=== PATIENT | female | born 1970 | race Caucasian/White ===

== ENCOUNTER 2019-07-28 11:49 | Day surgery (SDC) | payer OTHER ==
--- NOTE | 2019-07-25 13:12 | HP ---
AMENDED REPORT NOW INCLUDES DESIGNATED COSIGNER PREOPERATIVE HISTORY AND PHYSICAL: DATE OF ADMISSION/SURGERY: 07/28/19 DATE OF OFFICE VISIT: 07/22/19 ATTENDING SURGEON: Dr. Bj Dumont.* (DICTATED BY RAYNE TEIXEIRA) PROCEDURE: Right shoulder arthroscopic decompression, arthroscopic debridement , arthroscopic excision of distal clavicle, possible Regeneten patch. CHIEF COMPLAINT: Right shoulder pain. HISTORY OF PRESENT ILLNESS: Naty is a 48-year-old female who presents to the clinic for right shoulder pain due to AC joint arthritis, a partial thickness tear of the supraspinatus tendon. She has failed conservative measures, therefore, agreed to undergo a right shoulder arthroscopic decompression, arthroscopic debridement, arthroscopic excision of the distal clavicle and possible Regeneten patch with Dr. Dumont on 07/28/19. PAST MEDICAL HISTORY: Inflammatory polyarthropathy, GERD, hypertension. PAST SURGICAL HISTORY: Left total hip replacement, left hip debridement, left humerus, appendectomy. The patient denies prior complications with anesthesia. MEDICATIONS: 1. Ranitidine 150 mg 1 cap twice a day. 2. Methotrexate 2.5 mg 1 cap once weekly. 3. Folic acid 1 mg 1 a day. 4. Gabapentin 300 mg 1 twice a day. 5. Metoprolol 50 mg 1 twice a day. 6. Nucynta ER 250 mg 1 tab twice a day. 7. Nucynta 50 mg 1 tab twice a day as needed for breakthrough pain. 8. Norethindrone acetate 5 mg 1 daily. 9. Estradiol 1 mg 1 every day. 10. Lisinopril 10 mg 1 every day. 11. Fluoxetine 40 mg 1 tab every day. ALLERGIES: buprenorphine and DICLOFENAC. FAMILY HISTORY: Positive for coronary artery disease. Denies family history of DVT or PE. SOCIAL HISTORY: She is not a smoker. She denies alcohol consumption. She is right hand dominant. REVIEW OF SYSTEMS: A 14-point review of systems was reviewed with the patient. Positive for current complaint, otherwise negative. Denies fever, chills, chest pain, shortness of breath, history of bleeding disorder, history of DVT or PE. PHYSICAL EXAMINATION GENERAL: A 48-year-old well-developed, well-nourished female, in no acute distress. Alert and oriented x3. Appropriate mood and affect. Good balance and coordination of the upper extremities. VITAL SIGNS: Height 64, weight 189. Pulse 74, blood pressure 136/74, respiratory rate 16, temperature 97.1, BMI 32.4. HEENT: Normocephalic, atraumatic. PERRL. Throat clear. NECK: Supple. PULMONARY: Lungs are clear to auscultation bilaterally. No wheezing, rhonchi, or rales. CARDIAC: Regular rate and rhythm. S1, S2. No murmurs, gallops, or rubs. No edema. ABDOMEN: Positive bowel sounds. Soft, nontender. NEURO: Alert and oriented x3. Cranial nerves grossly intact. MUSCULOSKELETAL: Right upper extremity: Skin is intact. No warmth or erythema. Tenderness of the AC joint and subacromial space. Forward flexion 160 , abduction 160. External rotation 60, internal rotation to the thoracolumbar spine. Positive impingement, Speed, Lai, Neer, and Kent. +4/5 strength to rotator cuff testing with pain positive. +2 radial pulse. Sensation intact to light touch distally. STUDIES: MRI revealed partial thickness tear of the supraspinatus and AC joint arthritis plus fluid in the bicipital groove. IMPRESSION: Right shoulder partial thickness rotator cuff tear and acromioclavicular joint arthritis. PLAN: The patient is scheduled to undergo a right shoulder arthroscopic decompression, arthroscopic debridement, arthroscopic excision of distal clavicle with Regeneten patch with Dr. Dumont on 07/28/19. She will follow up in 10 to 14 days postop for followup and suture removal. We touched base with her provider in the pain clinic, who recommended oxycodone 5 mg, MDD of 6 in addition to her chronic pain medications for postop pain management. RAYNE TEIXEIRA [id number]/[facility] #: [id number] REYNOLD
[~2019-07-28 11:49] MED LIST: Buffered Lidocaine 1% SYRIN* 1 ML/SYRINGE INTRADERM ONE; Bupivacaine 0.25% SDV* 30 ML ONE; DiMENhydriNATE IV* 50 MG/ML VIAL IV PUSH PRN; Famotidine IV* 10 MG/ML 2 ML (20 mg) IV ONE; HYDROmorphone INJ1* 1 MG/ML SYRINGE IV PRN; Lactated Ringers 1000 ML Bag* 1,000 ML IV SCH; Naloxone* 0.4 MG/ML 1 ML VIAL IV PRN; Ondansetron TAB* 4 MG PO ONE; PROCHLORPERAZINE INJ 5 MG/ML 2 ML VIAL IV PRN; fentaNYL* 50 MCG/ML 2 ML VIAL (100 MCG VIAL) IV PRN; oxyCODONE TAB* 5 MG TAB PO PRN
[2019-07-28] MEDS ORDERED: ceFAZolin 2 GM in NS PREMIX(*) 2 GM/100 ML BAG IVPB ONE (12:24)
[2019-07-28] MEDS ORDERED: Famotidine IV* 10 MG/ML 2 ML (20 mg) ONE (12:48)
[2019-07-28] MEDS ORDERED: Ondansetron ODT TAB* 4 MG ONE (12:48)
[2019-07-28] MEDS ORDERED: Ropivacaine 0.2% * 2 MG/ML VIAL ONE (14:40)
[2019-07-28] MEDS ORDERED: KETAMINE HCL* 50 MG/ML 10 ML VIAL ONE (14:47)
[2019-07-28] MEDS ORDERED: fentaNYL* 50 MCG/ML 2 ML VIAL (100 MCG VIAL) ONE ×2 (14:47→16:31)
[2019-07-28] MEDS ORDERED: Midazolam* 1 MG/ML 5 ML VIAL (5 MG) ONE (14:48)
[2019-07-28] MEDS ORDERED: Lidocaine 1% w EPI 1:200,000* SDV 30 ML VIAL ONE (15:31)
[2019-07-28] MEDS ORDERED: Lidocaine 2% PF * 5 ML VIAL ONE (16:18)
[2019-07-28] MEDS ORDERED: Propofol* 10 MG/ML 20 ML BTL ONE (16:18)
[2019-07-28] MEDS ORDERED: Dexamethasone IV* 4 MG/ML 1 ML (4 MG) ONE (16:18)
[2019-07-28] MEDS ORDERED: Ketorolac INJ* 30 MG/ML 1 ML VIAL ONE (16:18)
[2019-07-28] MEDS ORDERED: oxyCODONE ORAL.SOLN* 5 MG/5 ML UDC ONE (17:30)
[2019-07-28 18:34] VITALS: BP 135/78
--- NOTE | 2019-07-29 01:33 | OP ---
DATE OF OPERATION: 07/28/19 LOCATED WITHIN [facility] DATE OF : 72 SURGEON: Bj Dumont MD ANIMAL HUSBANDRY MANAGER: RAYNE Burt. An family assistant was needed for the entirety of the case to help with positioning, retraction, and utilized throughout all portion of the case. ANESTHESIOLOGIST: Dr. Rousseau. ANESTHESIA: General with interscalene block. PRE-OP DIAGNOSIS: Right shoulder acromioclavicular joint arthritis with partial tear of the rotator cuff. POST-OP DIAGNOSES: Partial tear of the rotator cuff and acromioclavicular joint arthritis and impingement, intact superior labrum. OPERATIVE PROCEDURE: Right shoulder arthroscopy with: 1. Extensive glenohumeral debridement. 2. Subacromial decompression with acromioplasty. 3. Distal clavicle incision. 4. Rotator cuff repair using Regeneten. INDICATIONS: Naty Wong is a 48-year-old female with persistent shoulder pain refractory to conservative management. She has had several injections. She had AC joint arthritis with possible SLAP tear. She also has a potential history of MS. She has persistent pain and incomplete relief of symptoms. She has also chronic pain. The imaging demonstrated a partial-thickness tear of the supraspinatus and some AC joint arthritis. She did have arthrogram, so it was not sure if her biceps was involved and her symptoms were equivocal. After extensive discussion of risks and benefits, surgery versus nonoperative treatment, she has elected to proceed with surgical treatment. The risks and benefits were discussed at length included, but not limited to, bleeding; infection; damage to nerves, vessels, surrounding structures; wound nonhealing; persistent pain; need for further surgery; scarring; stiffness; incomplete relief of symptoms; risk of anesthesia. COMPLICATIONS: None. IMPLANTS USED: Regeneten patch, size medium. DESCRIPTION OF PROCEDURE: The patient was greeted in the preoperative area by the attending surgeon. Correct extremity was marked and consent was confirmed. The patient underwent interscalene nerve block by anesthesiologist after which she was brought back to the operating suite, placed in supine position on the operating table, and underwent general anesthesia with endotracheal intubation after which she was placed in the left lateral decubitus position with an axillary roll and all bony prominences were padded. She was secured with pegboard. The right arm was draped unsterile with 10 pounds of traction. The right shoulder was prepped in usual sterile fashion beginning with chlorhexidine soap, scrub, alcohol wipe, and a final prep with ChloraPrep. After appropriate surgical pause indicating side, site, procedure, and administration of antibiotics, a standard postero-lateral portal was made sharply with 11-blade. Scope was introduced into the joint and the joint was examined. There was synovitis that was present. There was unstable fraying of the anterior, posterior labrum. The superior labrum actually looked intact, there appeared to be a normal variant. The inferior recess was intact. There was small area of chondrosis on the glenoid, which was debrided back using the shaver. The subscap was intact. The undersurface of the supraspinatus had some mild fraying. The biceps had minimal erythema and the biceps was taken through range of motion after the anterior portal was made. The shaver was used to debride back the anterior and posterior labrum. Decision was made to leave the biceps alone. Attention was then directed to the subacromial space. The scope was positioned in the subacromial space. The lateral portal was made in an outside-in fashion. The shaver was used to debride back the abundant thick bursal tissue that was present. The undersurface of the acromion was skeletonized using electrocautery device. A 4.0 oval bur was then used to do acromioplasty. Her bone quality was quite poor. Attention was then directed to the AC joint which had obvious stenosis. The bur was brought into through the anterior portal and the distal 8 mm was removed using the bur under arthroscopic visualization with care to prevent any damage to the CC ligament. Final images were obtained. Attention was directed to the rotator cuff. The cuff was probed after an extensive bursectomy was done. There was some mild partial tearing. Decision was made to treat this. She did have clinical symptoms for so long. After the size medium patch was then opened and brought to the field through separate stab incision, the cannula was placed and the Regeneten patch was secured medially with tendon phillip, then laterally with bone phillip. The greater tuberosity appeared to have good quality of bone. The patch was well secured. The wounds were then copiously irrigated with sterile saline. Final images were obtained. Portals were closed with 3-0 nylon in interrupted fashion. Sterile dressings were applied. Cryo/Cuff and a regular sling. She was awoken from anesthesia and transferred to the PACU in stable condition. POSTOPERATIVE PLAN: She will be nonweightbearing. She will wean out of sling in 2 days. She will be discharged on pain medications. DVT prophylaxis was considered, but deferred due to no previous personal or family history. I will see the patient back in 10 to 14 days. [id number]/[facility] #: [id number] REYNOLD
== END 2019-07-28 18:20 | disposition home or self-care (01) ==
LOC: OREAST 11:49
PROVIDERS: ATTEND Orthopaedic Surgery
DX: S46.011D Strain of muscle(s) and tendon(s) of the rotator cuff of right shoulder, subsequent encounter (principal); M75.41 Impingement syndrome of right shoulder; M19.011 Primary osteoarthritis, right shoulder; G89.18 Other acute postprocedural pain; I10 Essential (primary) hypertension; K21.9 Gastro-esophageal reflux disease without esophagitis; G89.29 Other chronic pain; X58.XXXD Exposure to other specified factors, subsequent encounter; Y92.9 Unspecified place or not applicable
CPT/HCPCS: A9270-GY; C1713; J0690; J1100; J1885; J2001; J2250; J2704; J2795; J3010; J3490

== ENCOUNTER 2019-11-17 14:58 | Emergency (ER) | payer SELFPAY ==
--- NOTE | 2019-11-17 15:36 | ED ---
Lower Extremity - HPI Summary HPI Summary: 49-year-old female presents to the emergency department today complaining of left leg pain, swelling, bruising. The patient currently has 8 out of 10 aching pain in her left calf which is made worse with ambulation. Patient states these symptoms have been present for approximately 8 days. Patient also endorses mild shortness of breath which she recently noticed a few days ago. Patient has no chest pain at this time. Patient has no history of blood clot or DVT, no recent surgery, immobilization. Patient does take estrogen hormone therapy. Patient is able to ambulate. Patient is otherwise well and denies fever, chest pain, abdominal pain, nausea, vomiting, diarrhea. - History of Current Complaint Chief Complaint: EDExtremityLower Stated Complaint: L LEG PAIN PER PT Time Seen by Provider: 11/17/19 15:26 Hx Obtained From: Patient Mechanism Of Injury: Unknown Onset of Pain: Days Onset/Duration: Days Severity Initially: Mild Severity Currently: Moderate Pain Intensity: 5 Pain Scale Used: 0-10 Numeric Timing: Constant Location: Is Discrete @ - Left lower extremity Associated Signs And Symptoms: Positive: Swelling, Redness, Bruising. Negative : Fever, Knee Pain Aggravating Factor(s): Ambulation, Movement, Weight Bearing, Stairs Alleviating Factor(s): Rest Able to Bear Weight: Yes - Allergies/Home Medications Allergies/Adverse Reactions: Allergies Allergy/AdvReac Type Severity Reaction Status Date / Time buprenorphine [From Butrans] Allergy Severe Severe Verified 11/17/19 15:22 Ankle Edema shellfish derived Allergy Severe Swelling Verified 11/17/19 15:22 Of Face,Lips,& Throat diclofenac [From Flector] Allergy Mild Rash Verified 11/17/19 15:22 Home Medications: Home Medications Omeprazole CAP (NF) [Prilosec CAP*] 20 mg PO QAM 07/03/12 [History Confirmed ] Gabapentin CAP(*) [Neurontin CAP(*)] 300 mg PO BID 06/09/15 [History Confirmed 11/17/19] Estradiol [Estrace] 1 mg PO QPM 07/31/18 [History Confirmed 11/17/19] Norethindrone Acetate 2.5 mg PO QPM 07/31/18 [History Confirmed 11/17/19] Folic Acid TAB* [Folvite TAB*] 1 mg PO QPM 02/03/19 [History Confirmed 11/17/19] Lisinopril TAB* [Prinivil TAB*] 10 mg PO QPM 06/05/19 [History Confirmed ] Metoprolol Succinate XL TAB* [Toprol XL TAB*] 50 mg PO BID 06/05/19 [History Confirmed 11/17/19] Morphine Sulfate [Ms Contin] 30 mg PO BID 11/05/19 [History Confirmed 11/17/19] EPINEPHrine [Epipen 2-Moose] 0.3 mg IM ONCE PRN 11/17/19 [History Confirmed ] FLUoxetine CAP* [PROzac CAP*] 40 mg PO DAILY 11/17/19 [History Confirmed ] Methocarbamol TAB* [Robaxin 500 MG TAB*] 500 mg PO TID PRN 11/17/19 [History Confirmed 11/17/19] Methotrexate Sodium/Pf [Methotrexate 50 mg/2 ml Vial] 0.7 ml INJ WEEKLY [History Confirmed 11/17/19] traMADol TAB* [Ultram*] 50 mg PO Q4HR PRN 11/17/19 [History Confirmed 11/17/19] PMH/Surg Hx/FS Hx/Imm Hx Endocrine/Hematology History: Denies: Hx Bone Marrow Disease, Hx Diabetes, Hx Sickle Cell Disease, Hx Anemia Cardiovascular History: Reports: Hx Hypercholesterolemia, Hx Hypertension Denies: Hx Pacemaker/ICD Respiratory History: Reports: Hx Seasonal Allergies History: Denies: Hx Renal Disease Musculoskeletal History: Reports: Hx Arthritis - HIPS, KNEES, THUMBS, SHOULDERS , Hx Bursitis, Hx Tendonitis, Other Musculoskeletal History - CONGENTAL HIP DYSPlAGIA, LEFT THR, RIGHT SHOULDER- CHRONIC PAIN Sensory History: Reports: Hx Contacts or Glasses - BOTH WILL WEAR GLASSES DOS Denies: Hx Cataracts, Hx Glaucoma, Hx Hearing Aid Opthamlomology History: Reports: Hx Contacts or Glasses - BOTH WILL WEAR GLASSES DOS Denies: Hx Cataracts, Hx Glaucoma Psychiatric History: Reports: Hx Depression Denies: Hx Panic Disorder - Surgical History Surgery Procedure, Year, and Place: APPENDECTOMY [facility]. FX LEFT HUMERUS 1987 [facility]. LABRAL DEBRIDEMENT LEFT HIP 05/13 [facility]. LEFT HIP REPLACEMENT 02/13 [facility] Hx Anesthesia Reactions: No Infectious Disease History: No Infectious Disease History: Denies: History Other Infectious Disease, Traveled Outside the [place] in Last 30 Days - Social History Alcohol Use: None Substance Use Type: Reports: None Substance Use Comment - Amount & Last Used: Sophia DIXON Smoking Status (MU): Former Smoker Amount Used/How Often: 1 PPD FOR 20 YRS Length of Time of Smoking/Using Tobacco: 20 YRS Have You Smoked in the Last Year: No Review of Systems Constitutional: Negative Eyes: Negative ENT: Negative Cardiovascular: Negative Positive: Shortness Of Breath. Negative: Cough Gastrointestinal: Negative Genitourinary: Negative Positive: Arthralgia, Myalgia, Edema Positive: Rash, Bruising Neurological/Mental Status: Negative Psychological: Normal All Other Systems Reviewed And Are Negative: Yes Physical Exam - Summary Physical Exam Summary: Patient is in no acute distress and speaks in full and broken sentences with no evidence of accessory muscle use with respiration. Inspection of the left lower extremity reveals significant edema, erythema, ecchymosis of the left lower extremity. Dorsalis pedis pulse is 1+ on the left lower extremity. Negative Homans sign. Patient has full range of motion at the ankle and knee bilaterally. Triage Information Reviewed: Yes Vital Signs On Initial Exam: Initial Vitals Temp Pulse Resp BP Pulse Ox 98.9 F 83 16 165/93 98 11/17/19 15:23 11/17/19 15:23 11/17/19 15:23 11/17/19 15:23 11/17/19 15:23 Vital Signs Reviewed: Yes Appearance: Positive: Well-Appearing, No Pain Distress, Well-Nourished Skin: Positive: Warm, Skin Color Reflects Adequate Perfusion Eyes: Positive: EOMI, LIOR ENT: Positive: Hearing grossly normal Respiratory/Lung Sounds: Positive: Clear to Auscultation, Breath Sounds Present Cardiovascular: Positive: RRR, S1, S2 Abdomen Description: Positive: Nontender, Soft Bowel Sounds: Positive: Present Musculoskeletal: Positive: Strength/ROM Intact Neurological: Positive: Sensory/Motor Intact, Alert, Oriented to Person Place, Time, Normal Gait, Facial Symmetry, Speech Normal Psychiatric: Positive: Normal, Affect/Mood Appropriate AVPU Assessment: Alert Procedures - Sedation Patient Received Moderate/Deep Sedation with Procedure: No Diagnostics - Vital Signs Vital Signs Temp Pulse Resp BP Pulse Ox 11/17/19 15:23 98.9 F 83 16 165/93 98 - Laboratory Result Diagrams: 11/17/19 16:03 11/17/19 16:03 Lab Statement: Any lab studies that have been ordered have been reviewed, and results considered in the medical decision making process. Lower Extremity Course/Dx - Course Course Of Treatment: Patient was evaluated in the emergency department today for left leg pain and swelling. Vitals noted and stable. Physical exam is consistent with possible DVT. Laboratory results returned showing no leukocytosis or significant electrolyte abnormality. Coagulation studies returned within normal limits. D-dimer returned elevated at 715. Venous Doppler study of the left lower extremity and CTA of the chest results pending. Patient signed out to RAYNE Prajapati at 1730. - Diagnoses Differential Diagnosis/HQI/PQRI: Positive: DVT, Other - Pulmonary embolism Provider Diagnoses: Leg pain Discharge ED - Sign-Out/Discharge Documenting (check all that apply): Sign-Out Patient Signing out patient TO: Harvinder Stewart Receiving patient FROM: Enrike Robbins - Discharge Plan Referrals: Llvuia Polanco MD [Primary Care Provider] -
--- OUTSIDE RECORDS SUMMARY | 2019-11-17 15:59 | XMS REPORT | Continuity of Care Document ---
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 Onset: 2014 Enthesopathy of hip region Patrizia Oneil M.D. Onset: 06/25/2015 Localized, primary osteoarthritis Patrizia Oneil M.D. Onset: 12/06/2016 Chondromalacia of patella Patrizia Oneil M.D. Onset: 05/14/2017 Prosthetic arthroplasty of the hip Patrizia Oneil M.D. Onset: 05/20/2018 Localized, secondary osteoarthritis of the Bj Dumont MD Onset: 06/17/2019 shoulder region Strain of muscle(s) and tendon(s) of the Bj Dumont MD Onset: 06/17/2019 rotator cuff of right shoulder, subsequent encounter Superior glenoid labrum lesion of right Bj Dumont MD Onset: 06/17/2019 shoulder, subsequent encounter Incomplete rotator cuff tear or rupture of Bj Dumont MD Onset: 10/14/2019 right shoulder, not specified as traumatic Social History Type Date Description Comments Sex Unknown ETOH Use Denies alcohol use Tobacco Use Start: Unknown End: Patient is a former quit 5 1/2 yrs ago Unknown smoker Smoking Status Reviewed: 10/14/19 Patient is a former quit 5 1/2 yrs ago smoker Exercise Exercises regularly Type/Frequency Allergies, Adverse Reactions, Alerts Active Allergies Reaction Severity Comments Date Butrans lower extremity edema 05/09/2017 Diclofenac hives 07/22/2019 Shellfish-Derived Products 09/12/2019 Inactive Allergies NKDA 06/23/2014 Medications Active Medications SIG Qnty Indications Ordering Date Provider Tramadol HCL 1 tablet by mouth 30tabs M25.551 Patrizia Oneil, 50mg every 6 hours as M.D. 0 Tablets needed pain Cyclobenzaprine HCL take 1 tab by mouth 20tabs Bj Dumont, at night as needed 0 10mg Tablets for pain Methotrexate Sodium inject 0.7 20ml M06.4 Irving Brice, (PF) milliliters (17.5 M.D. 0 50mg/2ML Solution mg) subcutaneously once per week as directed. single-dose vial. discard any remainder after use BD 1ML Tuberculin use for weekly 100units Irving Brice, Syringe/Safetyglide injection of M.D. 0 TB Needle 27GX1/2" methotrexate 27G X 1/2" 1 ML Misc Ranitidine HCL take one 60caps Irving Brice, 150mg capsule/tablet by M.D. 9 Capsules mouth twice daily as needed for reflux Folic Acid Take 1 Tablet By 90tabs M06.4 Irving Brice, 1mg Tablets Mouth Every Day M.D. 9 Neoprene Patella Knee use daily as needed 1units Irving Brice, Support/Medium for right knee M.D. 7 Misc stabilization with walking Gabapentin Take one 180caps Irving Brice, 300mg capsule/tablet by M.D. 5 Capsules mouth twice daily Fluoxetine HCL Take 1 Capsule By Unknown 40mg Mouth Every Day 0 Capsules Lisinopril 1 by mouth every day Unknown 10mg Tablets 0 Estradiol 1 by mouth every day Unknown 1mg Tablets 0 Norethindrone Acetate days Unknown 0 5mg Tablets Nucynta ER 1 tabs bid Unknown 250 Tablets 0 ER 12HR Metoprolol Succinate 1 tablet twice daily Unknown ER 0 50mg Tablets ER 24HR History Medications Tramadol HCL 1-2 tablet by 14tabs Patrizia Thad, 09/26/2019 - 50mg Tablets mouth at night as M.D. 09/29/2019 needed pain Cyclobenzaprine HCL take 1 tab by 30tabs Bolivar Desir, 08/05/2019 - 10mg mouth three times MD 09/09/2019 Tablets a day as needed for pain/muscle spasms Oxycodone HCL 1 tab by mouth 10tabs Bolivar Desir, 07/28/2019 - 5mg Tablets every 12 hours as 09/09/2019 needed post op pain. mdd 2. chronic pain pt. ok for short term post op pain per pain clinic Medications Administered in Office Medication SIG Qnty Indications Ordering Provider Date Depomedrol 40MG Patrizia Oneil M.D. 09/29/2019 Injection Triamcinolone (Kenalog) Irving Brice M.D. 09/09/2019 Injection Triamcinolone (Kenalog) Irving Brice M.D. 09/09/2019 Injection Depomedrol 40MG Berenice Barnes M.D. 05/28/2019 Injection Depomedrol 40MG Berenice Barnes M.D. 04/07/2019 Injection Depomedrol 40MAKENZIE Alvares 03/17/2019 Injection Depomedrol 40MG Berenice Barnes M.D. 02/24/2019 Injection Triamcinolone (Kenalog) Irving Brice M.D. 01/28/2019 Injection Kateomedrol 40MG Berenice Barnes M.D. 11/13/2018 Injection Depomedrol 40MG Patrizia Oneil M.D. 11/06/2018 Injection Triamcinolone (Kenalog) Irving Brice M.D. 10/28/2018 Injection Depomedrol 40MG MAKENZIE Huang 08/14/2018 Injection Depomedrol 40MAKENZIE Alvares 08/14/2018 Injection Depomedrol 40MG Berenice Barnes M.D. 05/29/2018 Injection Depomedrol 40MG Berenice Barnes M.D. 05/29/2018 Injection Kateomedrol 40MG Berenice Barnes M.D. 01/30/2018 Injection Depomedrol 40MG Berenice Barnes M.D. 01/30/2018 Injection Depomedrol 40MG Berenice Barnes M.D. 10/17/2017 Injection Depomedrol 40MG Berenice Barnes M.D. 10/17/2017 Injection Depomedrol 40MG Berenice Barnes M.D. 05/23/2017 Injection Hyaluron Or Patriziaradha Oneil M.D. 02/23/2017 Benedict Garza,For Intra-Articular Inj Per Dose Injection Hyaluron Or Patriziaradha Oneil M.D. 02/16/2017 Benedict Garza,For Intra-Articular Inj Per Dose Injection Hyaluron Or Patrizia Oneil M.D. 02/09/2017 Benedict Garza,For Intra-Articular Inj Per Dose Injection Depomedrol 40MG Patrizia Oneil M.D. 12/06/2016 Injection Depomedrol 40MG Berenice Barnes M.D. 08/09/2016 Injection Depomedrol 40MG Berenice Barnes M.D. 02/03/2016 Injection Depomedrol 40MG Berenice Barnes M.D. 12/08/2015 Injection Depomedrol 80MG Patrizia Oneil M.D. 06/25/2015 Injection Depomedrol 80MG Patrizia Oneil M.D. 04/01/2015 Injection Depomedrol 80MG Patrizia Oneil M.D. 03/24/2015 Injection Immunizations Description No Information Available Vital Signs Date Vital Result Comment 10/14/2019 10:10am Height 64.25 inches 5'4.25" Weight 190.00 lb Heart Rate 92 /min BP Systolic 152 mmHg BP Diastolic 92 mmHg Respiratory Rate 18 /min Pain Level 5 O2 % BldC Oximetry 98 % BMI (Body Mass Index) 32.4 kg/m2 10/13/2019 12:01pm Height 64.25 inches 5'4.25" Weight 190.00 lb Heart Rate 101 /min BP Systolic 148 mmHg BP Diastolic 96 mmHg Body Temperature 97.7 F Pain Level 0 BMI (Body Mass Index) 32.4 kg/m2 Results Test Acquired Date Facility Test Result H/L Range Note Xray 09/29/2019 [facility] Inj/Aspir Major <pending> JT Or Bursa W/ US Laboratory test 09/05/2019 [facility] Erythrocyte Sed 25 mm/Hr High 0-19 [address] [place] [address] [phone] C Reactive Protein 18.02 mg/L High <8.01 2 CBC Auto 09/05/2019 [facility] White Blood 8.4 10^3/uL Normal 3.5-10.[address] [place] [address] [phone] Red Blood Count 4.52 10^6/uL Normal 3.70-4.87 Hemoglobin 12.8 g/dL Normal 12.0-16.0 Hematocrit 38 % Normal 35-47 Mean Corpuscular Volume 83 fL Normal 80-97 Mean Corpuscular Hemoglobin 28 pg Normal 27-31 Mean Corpuscular HGB Conc 34 g/dL Normal 31-36 Red Cell Distribution Width 14 % Normal 10-15 Platelet Count 437 10^3/uL Normal 150-450 Mean Platelet Volume 7.1 fL Low 7.4-10.4 Abs Neutrophils 5.4 10^3/uL Normal 1.5-7.7 Abs Lymphocytes 2.4 10^3/uL Normal 1.0-4.8 Abs Monocytes 0.4 10^3/uL Normal 0-0.8 Abs Eosinophils 0.2 10^3/uL Normal 0-0.6 Abs Basophils 0.1 10^3/uL Normal 0-0.2 Abs Nucleated RBC 0.0 10^3/uL Granulocyte % 64.0 % Lymphocyte % 28.0 % Monocyte % 5.0 % Eosinophil % 2.2 % Basophil % 0.8 % Nucleated Red Blood Cells % 0.0 Comp Metabolic 09/05/2019 [facility] Sodium 137 mmol/L Normal 135-[address] [place] [address] [phone] Potassium 3.5 mmol/L Normal 3.5-5.0 Chloride 99 mmol/L Low 101-111 Co2 Carbon Dioxide 31 mmol/L Normal 22-32 Anion Gap 7 mmol/L Normal 2-11 Glucose 84 mg/dL Normal 70-100 Blood Urea Nitrogen 15 mg/dL Normal 6-24 Creatinine 0.78 mg/dL Normal 0.51-0.95 BUN/Creatinine Ratio 19.2 Normal 8-20 Calcium 8.8 mg/dL Normal 8.6-10.3 Total Protein 6.7 g/dL Normal 6.4-8.9 Albumin 3.9 g/dL Normal 3.2-5.2 Globulin 2.8 g/dL Normal 2-4 Albumin/Globulin Ratio 1.4 Normal 1-3 Total Bilirubin 0.30 mg/dL Normal 0.2-1.0 Alkaline Phosphatase 62 U/L Normal 34-104 Alt 10 U/L Normal 7-52 Ast 13 U/L Normal 13-39 Egfr Non- 79.2 >60 Egfr 95.8 >60 3 CBC Auto 06/04/2019 [facility] White Blood 11.3 10^3/uL High 3.5-10.[address] [place] [address] [phone] Red Blood Count 4.87 10^6/uL Normal 3.70-4.87 Hemoglobin 13.7 g/dL Normal 12.0-16.0 Hematocrit 40 % Normal 35-47 Mean Corpuscular Volume 83 fL Normal 80-97 Mean Corpuscular Hemoglobin 28 pg Normal 27-31 Mean Corpuscular HGB Conc 34 g/dL Normal 31-36 Red Cell Distribution Width 14 % Normal 10-15 Platelet Count 449 10^3/uL Normal 150-450 Mean Platelet Volume 7.7 fL Normal 7.4-10.4 Abs Neutrophils 8.0 10^3/uL High 1.5-7.7 Abs Lymphocytes 2.4 10^3/uL Normal 1.0-4.8 Abs Monocytes 0.7 10^3/uL Normal 0-0.8 Abs Eosinophils 0.1 10^3/uL Normal 0-0.6 Abs Basophils 0.1 10^3/uL Normal 0-0.2 Abs Nucleated RBC 0.0 10^3/uL Granulocyte % 70.9 % Lymphocyte % 21.4 % Monocyte % 6.3 % Eosinophil % 0.7 % Basophil % 0.7 % Nucleated Red Blood Cells % 0.0 Laboratory test 06/04/2019 [facility] C Reactive 15.97 mg/L High <8.01 [address] [place] [address] [phone] Comp Metabolic 06/04/2019 [facility] Sodium 137 mmol/L Normal 135-[address] [place] [address] [phone] Potassium 3.5 mmol/L Normal 3.5-5.0 Chloride 97 mmol/L Low 101-111 Co2 Carbon Dioxide 33 mmol/L High 22-32 Anion Gap 7 mmol/L Normal 2-11 Glucose 87 mg/dL Normal 70-100 Blood Urea Nitrogen 17 mg/dL Normal 6-24 Creatinine 0.64 mg/dL Normal 0.51-0.95 BUN/Creatinine Ratio 26.6 High 8-20 Calcium 9.5 mg/dL Normal 8.6-10.3 Total Protein 7.1 g/dL Normal 6.4-8.9 Albumin 4.3 g/dL Normal 3.2-5.2 Globulin 2.8 g/dL Normal 2-4 Albumin/Globulin Ratio 1.5 Normal 1-3 Total Bilirubin 0.40 mg/dL Normal 0.2-1.0 Alkaline Phosphatase 51 U/L Normal 34-104 Alt 26 U/L Normal 7-52 Ast 16 U/L Normal 13-39 Egfr Non- 99.5 >60 Egfr 120.4 >60 5 Laboratory test 06/04/2019 [facility] Erythrocyte Sed 16 mm/Hr Normal 0-[address] [place] [address] [phone] 1 Please check labs 2 days before follow up 2 Please check labs 2 days before follow up 3 Because ethnic data is not always readily available, this report includes an eGFR for both -Americans and non- Americans. The National Kidney Disease Education Program (NKDEP) does not endorse the use of the MDRD equation for patients that are not between the ages of 18 and 70, are , have extremes of body size, muscle mass, or nutritional status, or are non- or non-. According to the National Kidney Foundation, irrespective of diagnosis, the stage of the disease is based on the level of kidney function: Stage Description GFR(mL/min/1.73 m(2)) 1 Kidney damage with normal or decreased GFR 90 2 Kidney damage with mild decrease in GFR 60-89 3 Moderate decrease in GFR 30-59 4 Severe decrease in GFR 15-29 5 Kidney failure <15 (or dialysis) 4 FASTING 5 Because ethnic data is not always readily available, this report includes an eGFR for both -Americans and non- Americans. The National Kidney Disease Education Program (NKDEP) does not endorse the use of the MDRD equation for patients that are not between the ages of 18 and 70, are , have extremes of body size, muscle mass, or nutritional status, or are non- or non-. According to the National Kidney Foundation, irrespective of diagnosis, the stage of the disease is based on the level of kidney function: Stage Description GFR(mL/min/1.73 m(2)) 1 Kidney damage with normal or decreased GFR 90 2 Kidney damage with mild decrease in GFR 60-89 3 Moderate decrease in GFR 30-59 4 Severe decrease in GFR 15-29 5 Kidney failure <15 (or dialysis) Procedures Date Code Description Status 09/29/2019 Inj/Aspir Major JT Or Bursa W/ US Completed 09/09/2019 Inject/Drain Joint/Bursa Small W/O US Completed 09/09/2019 Inject/Drain Joint/Bursa Small W/O US Completed 07/28/2019 05501 Arthroscopy Shoulder,W/Rotator Cuff Repair Completed 07/28/2019 18859 Arthroscopy Shoulder,W/Rotator Cuff Repair Completed 07/28/2019 68426 Arthroscopy Shoulder,W/Rotator Cuff Repair Completed 07/28/2019 95558 Arthroscopy,Shoulder Decompression Of Subacromial Space Completed W/Acromio 07/28/2019 53307 Arthroscopy,Shoulder Decompression Of Subacromial Space Completed W/Acromio 07/28/2019 10288 Arthroscopy,Shoulder Decompression Of Subacromial Space Completed W/Acromio 05/28/2019 79436 Inject/Drain Joint/Bursa Major W/O US Completed Medical Devices Description No Information Available Encounters Type Date Location Provider Dx Diagnosis Office Visit 10/03/2019 Rheumatology Nurse Visit M06.4 Inflammatory 10:00a [facility] polyarthropathy Office Visit 09/29/2019 [facility] Patrizia Oneil, M25.552 Pain in left hip 8:30a at [facility] M25.551 Pain in right hip Z96.642 Presence of left artificial hip joint M16.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 polyarthropathy Z79.899 Other nursing home (current) drug therapy M18.12 Unil primary osteoarth of first carpometacarp joint, l hand M19.041 Primary osteoarthritis, right hand Office Visit 06/17/2019 8:00a [facility] Bj Dumont, S43.431D [facility] [place] glenoid labrum lesion of right shoulder, subs M19.211 Secondary osteoarthritis, right shoulder M75.111 Incomplete rotatr-cuff tear/ruptr of r shoulder, not trauma Office Visit 06/12/2019 [facility] M75.31 Calcific tendinitis 2:45p Orthopedics at Nikolas Barnes of right shoulder [place] Office Visit 06/09/2019 Rheumatology Irving Brice, M06.4 Inflammatory 2:40p [facility] polyarthropathy R79.82 Elevated C-reactive protein (CRP) Z79.899 Other bed bug exterminator (current) drug therapy G47.9 Sleep disorder, unspecified Assessments Date Code Description Provider 10/14/2019 M75.111 Incomplete rotator cuff tear or rupture Bj Dumont MD of right shoulder, not specified as traumatic 10/14/2019 M19.011 Primary osteoarthritis, right shoulder Bj Dumont MD 10/13/2019 M25.551 Pain in right hip Patrizia Oneil M.D. 10/13/2019 M16.11 Unilateral primary osteoarthritis, right Patrizia Oneil M.D. hip 10/03/2019 M06.4 Inflammatory polyarthropathy Nurse Visit 09/29/2019 M25.552 Pain in left hip Patrizia Oneil M.D. 09/29/2019 M25.551 Pain in right hip Patrizia Oneil M.D. 09/29/2019 Z96.642 Presence of left artificial hip joint Patrizia Oneil M.D. 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 hip dysplasia, right hip 09/12/2019 M75.111 Incomplete rotator cuff tear or rupture Bj Dumont MD of right shoulder, not specified as traumatic 09/12/2019 M19.011 Primary osteoarthritis, right shoulder Bj Dumont MD 09/12/2019 Z48.89 Encounter for other specified surgical Bj Dumont MD aftercare 09/09/2019 M06.4 Inflammatory polyarthropathy Irving Brice M.D. 09/09/2019 Z79.899 Other bed bug exterminator (current) drug therapy Irving Brice M.D. 09/09/2019 M18.12 Unilateral primary osteoarthritis of Irving Brice M.D. first carpometacarpal j 09/09/2019 M19.041 Primary osteoarthritis, right hand Irving Brice M.D. 08/12/2019 M75.111 Incomplete rotator cuff tear or rupture Bj Dumont MD of right shoulder, not specified as traumatic 08/12/2019 M19.011 Primary osteoarthritis, right shoulder Bj Dumont MD 07/28/2019 M75.111 Incomplete rotator cuff tear or rupture Delores Carbajal PA-C of right shoulder, not specified as traumatic 07/28/2019 M75.111 Incomplete rotator cuff tear or rupture Bj Dumont MD of right shoulder, not specified as traumatic 07/28/2019 M19.011 Primary osteoarthritis, right shoulder Delores Carbajal PA-C 07/28/2019 M19.011 Primary osteoarthritis, right shoulder Bj Dumont MD 07/22/2019 S43.431D [facility] glenoid labrum lesion of right Bj Dumont MD shoulder, subsequent encounter 07/22/2019 M19.211 Secondary osteoarthritis, right shoulder Bj Dumont MD 07/22/2019 M75.111 Incomplete rotator cuff tear or rupture Bj Dumont MD of right shoulder, not specified as traumatic 06/17/2019 S43.431D [facility] glenoid labrum lesion of right Bj Dumont MD shoulder, subsequent encounter 06/17/2019 M19.211 Secondary osteoarthritis, right shoulder Bj Dumont MD 06/17/2019 M75.111 Incomplete rotator cuff tear or rupture Bj Dumont MD of right shoulder, not specified as traumatic 06/12/2019 M75.31 Calcific tendinitis of right shoulder Berenice Barnes M.D. 06/09/2019 M06.4 Inflammatory polyarthropathy Irving Brice M.D. 06/09/2019 R79.82 Elevated C-reactive protein (CRP) Irving Brice M.D. 06/09/2019 Z79.899 Other nursing home (current) drug therapy Irving Brice M.D. 06/09/2019 G47.9 Sleep disorder, unspecified Irving Brice M.D. 05/28/2019 M75.31 Calcific tendinitis of right shoulder Berenice Barnes M.D. Plan of Treatment Future Appointment(s):12/16/2019 2:30 pm - José Cabral MD at [facility] at [id number]/10/2019 2:20 pm - Irving Brice M.D. at [facility]11/12/2019 3:00 pm - Bryn Dailey M.D. at [facility]10/14/2019 - Bj Dumont, MDM75.111 Incomplete rotator cuff tear or rupture of right shoulder, not specified as traumaticFollow up:Follow up: 2 months with awlcmjO75.011 Primary osteoarthritis, right shoulder Functional Status Description No Information Available Mental Status Description No Information Available Referrals Refer to Reason for Referral Status Appt Date Rylee Perla MD Please evaluate patient with unexplained Scheduled 2019 numbness in the peripheral extremities [address] [place] [address] [phone] [facility] [facility] Please evaluate for sleep apnea in patient with Sent 00/ 0000 severe fatigue and elevated CO2 [address] [place] [address] [phone]
--- OUTSIDE RECORDS SUMMARY | 2019-11-17 15:59 | XMS REPORT | Continuity of Care Document ---
:1970 External Reference #:[id number] Author Name Patrizia Oneil M.D. 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 Active Problems Provider Date Arthralgia [...] Dumont MD Onset: 06/17/2019 shoulder, subsequent encounter Social History Type Date Description Comments Sex Unknown ETOH Use Denies alcohol use Tobacco Use Start: Unknown End: Patient is a former quit 5 1/2 yrs ago Unknown smoker Smoking Status Reviewed: 09/29/19 Patient is a former quit 5 1/2 [...] 20tabs Bj Dumont, at night as needed MD 0 10mg Tablets for pain Methotrexate Sodium [...] Acetate days Unknown 0 5mg Tablets Nucynta 1 by mouth twice Unknown 50mg Tablets daily as needed for 0 breakthrough pain Nucynta ER 1 tabs bid Unknown 250 Tablets 0 ER 12HR Metoprolol Succinate 1 tablet twice daily Unknown ER 0 50mg Tablets ER 24HR History Medications Tramadol HCL 1-2 tablet by 14tabs Patrizia Oneil 09/26/2019 - 50mg Tablets mouth at night as M.DEvie 09/29/2019 needed pain Cyclobenzaprine HCL take 1 [...] Medication SIG Qnty Indications Ordering Provider Date Triamcinolone (Kenalog) Irving Brice M.D. 09/09/2019 Injection Triamcinolone (Kenalog) Irving Brice M.D. 09/09/2019 Injection Depomedrol 40MG Berenice Barnes M.D. 05/28/2019 Injection Depomedrol 40MG Berenice Barnes M.D. 04/07/2019 Injection Depomedrol 40MG Araceli Marcum, KIRAN-C 03/17/2019 Injection Depomedrol 40MG Berenice Barnes M.D. 02/24/2019 Injection Triamcinolone (Kenalog) Irving Brice M.D. 01/28/2019 Injection Depomedrol 40MG Berenice Barnes M.D. 11/13/2018 Injection Depomedrol 40MG Patrizia Oneil M.D. 11/06/2018 Injection Triamcinolone (Kenalog) Irving Brice M.D. 10/28/2018 Injection Depomedrol 40MG Araceli Bitting, KIRAN-C 08/14/2018 Injection Depomedrol 40MG Araceli AnthonytingKIRAN-C 08/14/2018 Injection Depomedrol 40MG Berenice Barnes M.D. 05/29/2018 Injection Depomedrol 40MG Berenice Barnes M.D. 05/29/2018 Injection Depomedrol 40MG Berenice Barnes M.D. 01/30/2018 Injection Depomedrol 40MG Berenice Barnes M.D. 01/30/2018 Injection Depomedrol 40MG Berenice Barnes M.D. 10/17/2017 Injection Depomedrol 40MG Berenice Barnes M.D. 10/17/2017 Injection Depomedrol 40MG Berenice Barnes M.D. 05/23/2017 Injection Hyaluron Or Patrizia Oneil M.D. 02/23/2017 KaylaOrthovisnathanielFor Intra-Articular Inj Per Dose Injection Hyaluron Or Patrizia Oneil M.D. 02/16/2017 Benedict GarzaFor Intra-Articular Inj Per Dose Injection Hyaluron Or Patrizia Oneil M.D. 02/09/2017 Benedict GarzaFor Intra-Articular Inj Per Dose Injection Depomedrol 40MG Patrizia Oneil M.D. 12/06/2016 Injection Depomedrol 40MG Berenice Barnes M.D. 08/09/2016 Injection Depomedrol 40MG Berenice Barnes M.D. 02/03/2016 Injection Luciano 40MG Berenice Barnes M.D. 12/08/2015 Injection Depomedrol 80MG Patrizia Oneil M.D. 06/25/2015 Injection Depomedrol 80MG Patrizia Oneil M.D. 04/01/2015 Injection Deplinetterol 80MG Patrizia Oneil M.D. 03/24/2015 Injection Immunizations Description No Information Available Vital Signs Date Vital Result Comment 09/29/2019 8:38am Height 64.25 inches 5'4.25" Weight 190.00 lb Heart Rate 82 /min BP Systolic 126 mmHg BP Diastolic 74 mmHg Body Temperature 95.2 F Pain Level 7 BMI (Body Mass Index) 32.4 kg/m2 09/12/2019 10:39am Height 64.25 inches 5'4.25" Weight 200.75 lb Heart Rate 72 /min BP Systolic 124 mmHg BP Diastolic 78 mmHg Respiratory Rate 12 /min Body Temperature 97.3 F Pain Level 5 BMI (Body Mass Index) 34.2 kg/m2 Results Test Acquired Date Facility Test Result H/L Range Note Xray 09/29/2019 [facility] In House Inj/Aspir Major <pending> JT Or Bursa W/ US Laboratory test 09/05/2019 [facility] Erythrocyte Sed 25 mm/Hr High 0-19 [address] [place] [address] [phone] C Reactive Protein 18.02 mg/L High <8.01 2 CBC Auto 09/05/2019 [facility] White Blood 8.4 10^3/uL Normal 3.5-10.[address] [place] [address] [phone] Red Blood Count 4.52 10^6/uL Normal 3.70-4.87 [...] Blood Cells % 0.0 Comp Metabolic 09/05/2019 [facility] Sodium 137 mmol/L Normal 135-[address] [place] [address] [phone] Potassium 3.5 mmol/L Normal 3.5-5.0 Chloride 99 [...] Egfr 95.8 >60 3 CBC Auto 06/04/2019 [facility] White Blood 11.3 10^3/uL High 3.5-10.[address] [place] [address] [phone] Red Blood Count 4.87 10^6/uL Normal 3.70-4.87 [...] Blood Cells % 0.0 Laboratory test 06/04/2019 [facility] C Reactive 15.97 mg/L High <8.01 [address] [place] [address] [phone] Comp Metabolic 06/04/2019 [facility] Sodium 137 mmol/L Normal 135-[address] [place] [address] [phone] Potassium 3.5 mmol/L Normal 3.5-5.0 Chloride 97 [...] Egfr 120.4 >60 5 Laboratory test 06/04/2019 [facility] Erythrocyte Sed 16 mm/Hr Normal 0-[address] [place], [place] [address] [phone] 1 Please check labs 2 days before [...] Inject/Drain Joint/Bursa Small W/O US Completed 07/28/2019 00034 Arthroscopy Shoulder,W/Rotator Cuff Repair Completed 07/28/2019 15760 Arthroscopy Shoulder,W/Rotator Cuff Repair Completed 07/28/2019 09277 Arthroscopy Shoulder,W/Rotator Cuff Repair Completed 07/28/2019 00657 Arthroscopy,Shoulder Decompression Of Subacromial Space Completed W/Acromio 07/28/2019 01239 Arthroscopy,Shoulder Decompression Of Subacromial Space Completed W/Acromio 07/28/2019 19991 Arthroscopy,Shoulder Decompression Of Subacromial Space Completed W/Acromio 05/28/2019 35811 Inject/Drain Joint/Bursa Major W/O US Completed Medical Devices Description No Information Available Encounters Type Date Location Provider Dx Diagnosis Office Visit 06/17/2019 [facility] Bj Dumont MD S43.431D Superior glenoid 8:00a at [place] labrum lesion of right shoulder, subs M19.211 Secondary osteoarthritis, right shoulder M75.111 Incomplete rotatr-cuff tear/ruptr of r shoulder, not trauma Office Visit 06/12/2019 Rashad Ng M75.31 Calcific tendinitis 2:45p Orthopedics at [facility] Barnes of right shoulder [place] Office Visit 06/09/2019 Rheumatology Irving Brice, M06.4 Inflammatory 2: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 09/29/2019 M25.551 Pain in right hip Patrizia Oneil M.D. 09/29/2019 M16.11 Unilateral primary osteoarthritis, right Patrizia Oneil M.D. hip 09/29/2019 Z96.642 Presence of left artificial hip joint Patrizia Oneil M.D. 09/12/2019 M75.111 Incomplete rotator cuff tear or rupture Bj Dumont MD of right shoulder, not specified as traumatic 09/12/2019 M19.011 Primary osteoarthritis, right shoulder Bj Dumont MD 09/09/2019 M06.4 Inflammatory polyarthropathy Irving Brice M.D. 09/09/2019 Z79.899 Other senior care (current) drug therapy Irving Brice M.D. 09/09/2019 [...] traumatic 07/28/2019 M19.011 Primary osteoarthritis, right shoulder Bj Dumont MD 07/28/2019 M19.011 Primary osteoarthritis, right shoulder Delores Carbajal PA-C 07/22/2019 S43.431D [place] glenoid labrum lesion of [...] (CRP) Irving Brice M.D. 06/09/2019 Z79.899 Other senior care (current) drug therapy Irving Brice M.D. 06/09/2019 G47.9 Sleep disorder, unspecified Irving Brice M.D. 05/28/2019 M75.31 Calcific tendinitis of right shoulder Berenice Barens M.D. Plan of Treatment Future Appointment(s):10/13/2019 11:30 am - Patrizia Oneil M.D. at [facility] at [id number]/14/2019 10:00 am - Bj Dumont MD at [facility] at [id number]/10/2019 2:20 pm - Irving Brice M.D. at [facility]11/12/2019 3:00 pm - Bryn Dailey M.D. at [facility]09/29/2019 - Patrizia Oneil M.D.M25.552 Pain in left hipFollow up:Follow up: 2 ivmapY91.551 Pain in right hipNew Medication: Tramadol HCL 50 mg - 1 tablet by mouth every 6 hours as needed painFollow up: Follow up: 2 tvwtmW21.11 Unilateral primary osteoarthritis, right hipZ96.642 Presence of left artificial hip joint Functional Status Description No Information Available Mental Status Description No Information Available Referrals Refer to Reason for Referral Status Appt Date Rylee Perla MD Please evaluate patient with unexplained Scheduled 2019 numbness in the peripheral extremities [address] [place] [address] [phone] [facility] Sleep [facility] Please evaluate for sleep apnea in patient with Sent / severe fatigue and elevated CO2 [address] [place] [address] [phone]
--- OUTSIDE RECORDS SUMMARY | 2019-11-17 15:59 | XMS REPORT | Continuity of Care Document ---
:1970 External Reference #:[id number] Author Name Patrizia Oneil M.D. 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 Onset: 2014 Enthesopathy of hip region Patrizia Oneil M.D. Onset: 06/25/2015 Localized, primary osteoarthritis Patrizia Oneil M.D. Onset: 12/06/2016 Chondromalacia of patella Patrizia Oneil M.D. Onset: 05/14/2017 Prosthetic arthroplasty of the hip Patrizia Oneil M.D. Onset: 05/20/2018 Localized, secondary osteoarthritis of the Bj Duomnt MD Onset: 06/17/2019 shoulder region Strain of [...] yrs ago Unknown smoker Smoking Status Reviewed: 10/13/19 Patient is a former quit 5 1/2 [...] Tramadol HCL 1-2 tablet by 14tabs Patrizia Oneil, 09/26/2019 - 50mg Tablets mouth at night as M.DEvie 09/29/2019 needed pain Cyclobenzaprine HCL take 1 tab by 30tabs Bolivar Desir, 08/05/2019 - 10mg mouth three times 09/09/2019 Tablets a day as needed for [...] Berenice Barnes M.D. 04/07/2019 Injection Depomedrol 40MG MAISHA HuangC 03/17/2019 Injection Depomedrol 40MG Berenice Barnes M.D. 02/24/2019 Injection Triamcinolone (Kenalog) Irving Brice M.D. 01/28/2019 Injection Depomedrol 40MG Berenice Barnes M.D. 11/13/2018 Injection Depomedrol 40MG Patrizia Oneil M.D. 11/06/2018 Injection Triamcinolone (Kenalog) Irving Brice M.D. 10/28/2018 Injection Depomedrol 40MG Araceli Marcum RPA-Juan Carlos 08/14/2018 Injection Depomedrol 40MG MAKENZIE Huang 08/14/2018 Injection Depomedrol 40MG Berenice Barnes M.D. 05/29/2018 Injection Depomedrol 40MG Berenice Barnes M.D. 05/29/2018 Injection Kateomedrol 40MG Berenice Barnes M.D. 01/30/2018 Injection Kateomedrol 40MG Berenice Barnes M.D. 01/30/2018 Injection Depomedrol 40MG Berenice Barnes M.D. 10/17/2017 Injection Depomedrol 40MG Berenice Barnes M.D. 10/17/2017 Injection Depomedrol 40MG Berenice Barnes M.D. 05/23/2017 Injection Hyaluron Or Patrizia Oneil M.D. 02/23/2017 Benedict Garza,For Intra-Articular Inj Per Dose Injection Hyaluron Or Patrizia Oneil M.D. 02/16/2017 Benedict Garza,For Intra-Articular Inj Per Dose Injection Hyaluron Or Patrizia Oneil M.D. 02/09/2017 Benedict GarzaFor Intra-Articular Inj Per Dose Injection Depomedrol 40MG Patrizia Oneil M.D. 12/06/2016 Injection Depomedrol 40MG Berenice Barnes M.D. 08/09/2016 Injection Yuerol 40MG Berenice Barnes M.D. 02/03/2016 Injection Depomedrol 40MG Berenice Barnes M.D. 12/08/2015 Injection Depomedrol 80MG Patrizia Oneil M.D. 06/25/2015 Injection Deplinetterol 80MG Patrizia Oneil M.D. 04/01/2015 Injection Depomedrol 80MG Patrizia Oneil M.D. 03/24/2015 Injection Immunizations Description No Information Available Vital Signs Date Vital Result Comment 10/13/2019 12:01pm Height 64.25 inches 5'4.25" Weight 190.00 lb Heart Rate 101 /min BP Systolic 148 mmHg BP Diastolic 96 mmHg Body Temperature 97.7 F Pain Level 0 BMI (Body Mass Index) 32.4 kg/m2 09/29/2019 8:38am Height 64.25 inches 5'4.25" Weight 190.00 lb Heart Rate 82 /min BP Systolic 126 mmHg BP Diastolic 74 mmHg Body Temperature 95.2 F Pain Level 7 BMI (Body Mass Index) 32.4 kg/m2 Results Test Acquired Date Facility Test Result H/L Range Note Xray 09/29/2019 [facility] In House Inj/Aspir Major <pending> JT Or Bursa W/ US Laboratory test 09/05/2019 [facility] Erythrocyte Sed 25 mm/Hr High 0-19 [address] [place] [address] [phone] C Reactive Protein 18.02 mg/L High <8.01 2 CBC Auto 09/05/2019 [facility] White Blood 8.4 10^3/uL Normal 3.5-10.[address] [place] [address] [phone] Red Blood Count 4.52 10^6/uL Normal 3.70-4.87 [...] Blood Cells % 0.0 Comp Metabolic 09/05/2019 [facility] Sodium 137 mmol/L Normal 135-[address] [place] [address] [phone] Potassium 3.5 mmol/L Normal 3.5-5.0 Chloride 99 [...] Egfr 95.8 >60 3 CBC Auto 06/04/2019 [facility] White Blood 11.3 10^3/uL High 3.5-10.[address] [place] [address] [phone] Red Blood Count 4.87 10^6/uL Normal 3.70-4.87 [...] Blood Cells % 0.0 Laboratory test 06/04/2019 [facility] C Reactive 15.97 mg/L High <8.01 [address] [place] [address] [phone] Comp Metabolic 06/04/2019 [facility] Sodium 137 mmol/L Normal 135-[address] [place] [address] [phone] Potassium 3.5 mmol/L Normal 3.5-5.0 Chloride 97 [...] Egfr 120.4 >60 5 Laboratory test 06/04/2019 [facility] Erythrocyte Sed 16 mm/Hr Normal 0-[address] [place] [address] [phone] 1 Please check labs 2 days before [...] Inject/Drain Joint/Bursa Small W/O US Completed 07/28/2019 34695 Arthroscopy Shoulder,W/Rotator Cuff Repair Completed 07/28/2019 34935 Arthroscopy Shoulder,W/Rotator Cuff Repair Completed 07/28/2019 48637 Arthroscopy Shoulder,W/Rotator Cuff Repair Completed 07/28/2019 68432 Arthroscopy,Shoulder Decompression Of Subacromial Space Completed W/Acromio 07/28/2019 44464 Arthroscopy,Shoulder Decompression Of Subacromial Space Completed W/Acromio 07/28/2019 51331 Arthroscopy,Shoulder Decompression Of Subacromial Space Completed W/Acromio 05/28/2019 98146 Inject/Drain Joint/Bursa Major W/O US Completed Medical Devices Description No Information Available Encounters Type Date Location Provider Dx Diagnosis Office Visit 10/03/2019 Rheumatology Nurse Visit M06.4 Inflammatory 10:00a [facility] polyarthropathy Office Visit 09/29/2019 [facility] Patrizia Oneil, M25.552 Pain in left hip 8:30a at [facility] M25.551 Pain in right hip Z96.642 Presence of left artificial hip joint M16.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 polyarthropathy Z79.899 Other termite exterminator (current) drug therapy M18.12 Unil primary osteoarth of first carpometacarp joint, l hand M19.041 Primary osteoarthritis, right hand Office Visit 06/17/2019 8:00a [facility] Bj Dumont, S43.431D [facility] [place] glenoid labrum lesion of right shoulder, subs M19.211 Secondary osteoarthritis, right shoulder M75.111 Incomplete rotatr-cuff tear/ruptr of r shoulder, not trauma Office Visit 06/12/2019 [facility] Berenice M75.31 Calcific tendinitis 2:45p Orthopedics at [facility] of right shoulder [place] Office Visit 06/09/2019 Rheumatology Irving Brice, 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 09/09/2019 Z79.899 Other termite exterminator (current) drug therapy Irving Brice M.D. [...] (CRP) Irving Brice M.D. 06/09/2019 Z79.899 Other [facility] (current) drug therapy Irving Brice M.D. 06/09/2019 G47.9 Sleep disorder, unspecified Irving Brice M.D. 05/28/2019 M75.31 Calcific tendinitis of right shoulder Berenice Barnes M.D. Plan of Treatment Future Appointment(s):10/14/2019 10:00 am - Bj Dumont MD at [facility] at [id number]/10/2019 2:20 pm - Irving Brice M.D. at [facility]11/12/2019 3:00 pm - Bryn Dailey M.D. at [facility]10/13/2019 - Patrizia Oneil M.D.M25.551 Pain in right hipFollow up:Follow up: As lzmxedT58.11 Unilateral primary osteoarthritis, right hip Functional Status Description No Information Available Mental Status Description No Information Available Referrals Refer to Reason for Referral Status Appt Date Rylee Perla MD Please evaluate patient with unexplained Scheduled 2019 numbness in the peripheral extremities [address] [place] [address] [phone] [facility] Sleep [facility] Please evaluate for sleep apnea in patient with Sent severe fatigue and elevated CO2 [address] [place] [address] [phone]
[2019-11-17 16:19] LABS: ABS Basophils 0.1 10^3/ul (0-0.2); ABS Eosinophils 0.1 10^3/ul (0-0.6); ABS Lymphocytes 1.4 10^3/ul (1.0-4.8); ABS Monocytes 0.4 10^3/ul (0-0.8); ABS Neutrophils 6.7 10^3/ul (1.5-7.7); Hematocrit 39 % (35-47); Hemoglobin 12.9 g/dL (12.0-16.0); Lymphocyte % 15.7 %; Mean Corpuscular HGB Conc 33 g/dL (31-36); Mean Corpuscular Hemoglobin 28 pg (27-31); Mean Corpuscular Volume 84 fL (80-97); Platelet Count 398 10^3/uL (150-450); Red Blood Count 4.62 10^6 /uL (3.70-4.87); Red Cell Distribution Width 16 % (10-15); White Blood Count 8.6 10^3/uL (3.5-10.8)
[2019-11-17 16:34] LABS: Activated Partial Thrombo Time 32.6 seconds (26.0-38.0); INR 1.05 (0.82-1.09)
[2019-11-17 16:56] LABS: Albumin/Globulin Ratio 1.1 (1-3); BUN/Creatinine Ratio 12.5 (8-20); Calcium 9.3 mg/dL (8.6-10.3); EGFR African American 92.6 (>60); EGFR Non-African American 76.6 (>60); Globulin 3.5 g/dL (2-4); Potassium 3.6 mmol/L (3.5-5.0); Total Bilirubin 0.4 mg/dL (0.2-1.0); Total Protein 7.5 g/dL (6.4-8.9)
[2019-11-17] MEDS ORDERED: Iohexol 350* (CONTRAST) 500 ML MDV IV ONE (17:10)
--- NOTE | 2019-11-17 19:21 | PN ---
Progress Note - Progress Note Date of Service: 11/17/19 Note: Patient signed out to me by Enrike MCLAIN pending results of CTA chest and lower extremity ultrasound. CTA chest negative. Ultrasound left lower extremity negative for clot. Left lower extremity is erythematous, warm. Area of erythema is Just proximal to left ankle, three-quarter circumferential. Full range of motion of joints at ankle and knee. Calf soft nontender. Erythema is blanchable.Possible cellulitis. Patient started on Keflex with Rx for same. Patient discharged in stable condition with diagnosis of cellulitis.
[2019-11-17] MEDS ORDERED: Cephalexin CAP* 500 MG PO ONE (20:07)
[2019-11-17 20:11] VITALS: BP 156/101
== END 2019-11-17 20:22 | disposition home or self-care (01) ==
LOC: ED 14:58
DX: M79.605 Pain in left leg (principal); F32.9 Major depressive disorder, single episode, unspecified; E78.00 Pure hypercholesterolemia, unspecified; I10 Essential (primary) hypertension; Z87.891 Personal history of nicotine dependence; Z79.899 Other long term (current) drug therapy
CPT/HCPCS: 36415; 71275; 80053; 85025; 85379; 85610; 85730; 93005; 99283; A9270-GY; Q9967

== ENCOUNTER 2020-03-08 18:20 | Inpatient (IN) ==
[2020-03-08 19:06] LABS: ABS Basophils 0.1 10^3/ul (0-0.2); ABS Eosinophils 0.4 10^3/ul (0-0.6); ABS Lymphocytes 2.3 10^3/ul (1.0-4.8); ABS Monocytes 0.8 10^3/ul (0-0.8); Eosinophil % 3.3 %; Hematocrit 32 % (35-47); Hemoglobin 10.8 g/dL (12.0-16.0); Lymphocyte % 19.7 %; Mean Corpuscular HGB Conc 33 g/dL (31-36); Mean Corpuscular Hemoglobin 27 pg (27-31); Mean Corpuscular Volume 80 fL (80-97); Mean Platelet Volume 7.3 fL (7.4-10.4); Platelet Count 397 10^3/uL (150-450); Red Blood Count 4.02 10^6 /uL (3.70-4.87); Red Cell Distribution Width 15 % (10-15); White Blood Count 11.6 10^3/uL (3.5-10.8)
[2020-03-08 19:24] LABS: Albumin 4.1 g/dL (3.2-5.2); Albumin/Globulin Ratio 1.2 (1-3); BUN/Creatinine Ratio 6.5 (8-20); Calcium 9.8 mg/dL (8.6-10.3); EGFR African American 5.1 (>60); EGFR Non-African American 4.2 (>60); Globulin 3.5 g/dL (2-4); Total Bilirubin 0.4 mg/dL (0.2-1.0); Total Protein 7.6 g/dL (6.4-8.9); Troponin I 0.01 ng/mL (<0.03)
[2020-03-08 19:25] LABS: Potassium 5.1 mmol/L (3.5-5.0)
[2020-03-08] MEDS: NS 0.9% 1000 ml BAG 1,000 ML IV ONE ×2 (19:51→20:11)
[2020-03-08] MEDS ORDERED: Ondansetron 4 mg VIAL 2 MG/ML 2 ml VIAL IV PRN (21:09)
[2020-03-08] MEDS ORDERED: Al Hydrox/Mg Hydrox/Simet LIQ 30 ML UDC PO PRN (21:09)
[2020-03-08] MEDS ORDERED: NS 0.9% 1000 ml BAG 1,000 ML IV SCH (21:30)
[2020-03-08 21:54] LABS: Magnesium 2.5 mg/dL (1.9-2.7); Phosphorus 10.8 mg/dL (2.5-5.0)
[2020-03-08] MEDS ORDERED: Heparin 5000 UNITS/ML VIAL(*) 1 ml vial SUBCUT SCH (22:00)
[2020-03-08 22:08] LABS: TSH (Thyroid Stimulating Horm) 0.93 mcIU/mL (0.34-5.60)
[2020-03-08 23:30] LABS: Urine Appearance Turbid; Urine Bilirubin Negative (Negative); Urine Blood 1+ (Negative); Urine Color Yellow; Urine Glucose Negative (Negative); Urine Ketones Negative (Negative); Urine Nitrite Negative (Negative); Urine Protein 1+(30 mg/dL) (Negative); Urine Specific Gravity 1.016 (1.010-1.030); Urine Urobilinogen Negative (Negative)
[2020-03-08 23:32] LABS: Urine Bacteria 1+ (Absent); Urine Red Blood Cell 2+(6-10/hpf) (Absent); Urine Squamous Epithelial Cell Present (Absent); Urine White Blood Cell 3+(>20/hpf) (Absent)
[2020-03-08 23:34] LABS: BUN/Creatinine Ratio 6.8 (8-20); Calcium 8.5 mg/dL (8.6-10.3); EGFR African American 5.5 (>60); EGFR Non-African American 4.5 (>60)
[2020-03-08 23:36] LABS: Troponin I 0.01 ng/mL (<0.03)
[2020-03-08 23:39] LABS: Potassium 5.1 mmol/L (3.5-5.0)
[2020-03-08 23:52] LABS: Urine Creatinine Concentration 231.83 mg/dL
[2020-03-09] MEDS ORDERED: cefTRIAXone 1 gm/50 mL NS BAG 1 GM/50 ML BAG IV ONE (00:53)
[2020-03-09] MEDS ORDERED: NS 0.9% 1000 ml BAG 3,000 ML IV ONE (00:54)
[2020-03-09 03:56] LABS: EGFR African American 5.8 (>60); EGFR Non-African American 4.8 (>60)
[2020-03-09 03:58] LABS: Potassium 5.2 mmol/L (3.5-5.0)
[2020-03-09] MEDS ORDERED: NS 0.9% 1000 ml BAG 1,000 ML IV ONE (04:27)
[2020-03-09 05:58] LABS: ABS Basophils 0.1 10^3/ul (0-0.2); ABS Eosinophils 0.3 10^3/ul (0-0.6); ABS Lymphocytes 1.5 10^3/ul (1.0-4.8); ABS Monocytes 0.7 10^3/ul (0-0.8); Eosinophil % 3.1 %; Hematocrit 29 % (35-47); Hemoglobin 9.5 g/dL (12.0-16.0); Lymphocyte % 14.9 %; Mean Corpuscular HGB Conc 33 g/dL (31-36); Mean Corpuscular Hemoglobin 27 pg (27-31); Mean Corpuscular Volume 82 fL (80-97); Mean Platelet Volume 7.2 fL (7.4-10.4); Platelet Count 329 10^3/uL (150-450); Red Blood Count 3.55 10^6 /uL (3.70-4.87); Red Cell Distribution Width 15 % (10-15); White Blood Count 10.2 10^3/uL (3.5-10.8)
[2020-03-09 06:14] LABS: BUN/Creatinine Ratio 7.2 (8-20); Calcium 7.7 mg/dL (8.6-10.3); EGFR African American 6.2 (>60); EGFR Non-African American 5.1 (>60)
[2020-03-09 06:20] LABS: Potassium 5.2 mmol/L (3.5-5.0)
[2020-03-09] MEDS ORDERED: Morphine 2 MG/ML SYRINGE IV PRN (08:10)
[2020-03-09] MEDS ORDERED: oxyCODONE/Acetamin 5/325 mg TAB PO PRN (08:10)
[2020-03-09] MEDS ORDERED: Morphine ER 30 mg TAB (*) ** extended release PO SCH (09:00)
[2020-03-09] MEDS: NS 0.9% 1000 ml BAG 1,000 ML IV SCH (11:22)
[2020-03-09] MEDS: Heparin 5000 UNITS/ML VIAL(*) 1 ml vial SUBCUT SCH ×2 (11:23→20:30)
[2020-03-10 02:55] LABS: Calcium 8.7 mg/dL (8.6-10.3); Potassium 4.8 mmol/L (3.5-5.0)
[2020-03-10 03:00] LABS: BUN/Creatinine Ratio 12.6 (8-20); EGFR African American 13.6 (>60); EGFR Non-African American 11.3 (>60)
[2020-03-10] MEDS: NS 0.9% 1000 ml BAG 1,000 ML IV SCH (04:35)
[2020-03-10] MEDS ORDERED: cefTRIAXone 1 gm/50 mL NS BAG 1 GM/50 ML BAG IVPB SCH (05:00)
[2020-03-10 06:39] LABS: ABS Basophils 0.1 10^3/ul (0-0.2); ABS Eosinophils 0.3 10^3/ul (0-0.6); ABS Lymphocytes 2.3 10^3/ul (1.0-4.8); ABS Monocytes 0.5 10^3/ul (0-0.8); Eosinophil % 4.6 %; Hematocrit 28 % (35-47); Hemoglobin 9.9 g/dL (12.0-16.0); Lymphocyte % 32.8 %; Mean Corpuscular HGB Conc 35 g/dL (31-36); Mean Corpuscular Hemoglobin 28 pg (27-31); Mean Corpuscular Volume 80 fL (80-97); Mean Platelet Volume 7.3 fL (7.4-10.4); Platelet Count 352 10^3/uL (150-450); Red Blood Count 3.55 10^6 /uL (3.70-4.87); Red Cell Distribution Width 14 % (10-15)
[2020-03-10 07:27] LABS: Calcium 8.6 mg/dL (8.6-10.3); EGFR African American 35.2 (>60); EGFR Non-African American 29.1 (>60); Potassium 4.6 mmol/L (3.5-5.0)
[2020-03-10] MEDS: Heparin 5000 UNITS/ML VIAL(*) 1 ml vial SUBCUT SCH ×2 (09:39→21:13)
[2020-03-10] MEDS ORDERED: Ondansetron 4 mg VIAL 2 MG/ML 2 ml VIAL IV PRN (20:17)
[2020-03-10] MEDS: Morphine ER 15 mg (*) ** extended release PO SCH (21:13)
[2020-03-11 05:38] LABS: ABS Eosinophils 0.1 10^3/ul (0-0.6); ABS Monocytes 0.5 10^3/ul (0-0.8); Eosinophil % 2.1 %; Hematocrit 31 % (35-47); Hemoglobin 10.5 g/dL (12.0-16.0); Lymphocyte % 28.1 %; Mean Corpuscular HGB Conc 34 g/dL (31-36); Mean Corpuscular Hemoglobin 27 pg (27-31); Mean Corpuscular Volume 81 fL (80-97); Mean Platelet Volume 7.2 fL (7.4-10.4); Nucleated Red Blood Cells % 0.1; Platelet Count 408 10^3/uL (150-450); Red Blood Count 3.89 10^6 /uL (3.70-4.87); Red Cell Distribution Width 15 % (10-15); White Blood Count 7.1 10^3/uL (3.5-10.8)
[2020-03-11 05:54] LABS: BUN/Creatinine Ratio 24.7 (8-20); Calcium 9.1 mg/dL (8.6-10.3); EGFR African American 81.9 (>60); EGFR Non-African American 67.7 (>60)
[2020-03-11] MEDS: Morphine ER 15 mg (*) ** extended release PO SCH (09:09)
[2020-03-11] MEDS: Heparin 5000 UNITS/ML VIAL(*) 1 ml vial SUBCUT SCH (09:10)
[2020-03-11 12:14] VITALS: BP 153/94
== END 2020-03-11 14:00 | disposition home or self-care (01) | DRG 683 ==
LOC: ED 18:20 → ICU 21:09 → MEDTELE 03-09 08:50
PROVIDERS: ADMIT Internal Medicine; ATTEND Internal Medicine

== ENCOUNTER 2023-10-16 11:46 | Inpatient (IN) ==
[~2023-10-16 11:46] MED LIST changes: -Buffered Lidocaine 1% SYRIN* 1 ML/SYRINGE INTRADERM ONE; -Bupivacaine 0.25% SDV* 30 ML ONE; -DiMENhydriNATE IV* 50 MG/ML VIAL IV PUSH PRN; -Famotidine IV* 10 MG/ML 2 ML (20 mg) IV ONE; -HYDROmorphone INJ1* 1 MG/ML SYRINGE IV PRN; -Lactated Ringers 1000 ML Bag* 1,000 ML IV SCH; +Naloxone 0.4 mg VIAL 0.4 mg/ml 1 ml VIAL IV PRN; -Naloxone* 0.4 MG/ML 1 ML VIAL IV PRN; -Ondansetron TAB* 4 MG PO ONE; -PROCHLORPERAZINE INJ 5 MG/ML 2 ML VIAL IV PRN; +Prochlorperazine 5 mg/ml 2 ml VIAL (10 mg) IV PRN; +fentaNYL 100 mcg/2 ml 50 MCG/ML VIAL IV PRN; -fentaNYL* 50 MCG/ML 2 ML VIAL (100 MCG VIAL) IV PRN; -oxyCODONE TAB* 5 MG TAB PO PRN
[2023-10-16] MEDS ORDERED: Tranexamic Acid 1 GM/100ML BAG 2,000 MG/200 ML BAG IV ONE (12:24)
[2023-10-16] MEDS ORDERED: ceFAZolin 2 GM PREMIX 2 GM/50 ML BAG ONE (12:24)
[2023-10-16] MEDS ORDERED: Sodium Citrate/Citric Acid LIQ 15 ML UDC ONE (12:24)
[2023-10-16 12:55] LABS: Rapid COVID-19 Molecular Undetected (Undetected)
[2023-10-16] MEDS ORDERED: Lidocaine 2% PF 5 ML VIAL ONE (12:55)
[2023-10-16] MEDS ORDERED: Midazolam 2 mg/2 ml VIAL 1 mg/ml 2 ml VIAL (2 mg) ONE ×2 (12:55→14:14)
[2023-10-16] MEDS ORDERED: fentaNYL 100 mcg/2 ml 50 MCG/ML VIAL ONE (12:55)
[2023-10-16] MEDS ORDERED: Propofol 10 MG/ML 20 ML BTL ONE ×2 (12:55→17:15)
[2023-10-16] MEDS: Lactated Ringers 1000 ml BAG 1,000 ML IV SCH ×2 (13:06→18:53)
[2023-10-16] MEDS: Buffered Lidocaine 1% SYRIN 1 ml INTRADERM ONE (13:06)
[2023-10-16] MEDS ORDERED: ROPIVACAINE 5 MG/ML 30 ML BTL (0.5%) ONE ×2 (14:14→14:24)
[2023-10-16] MEDS ORDERED: Magnesium Hydroxide LIQ 30 ML UDC PO PRN (15:05)
[2023-10-16] MEDS ORDERED: Ondansetron ODT 4 mg TAB 4 MG TAB PO PRN (15:05)
[2023-10-16] MEDS ORDERED: Lactulose 30 ml UDC PO PRN (15:05)
[2023-10-16] MEDS ORDERED: Ondansetron 4 mg VIAL 2 MG/ML 2 ml VIAL IV PRN (15:05)
[2023-10-16] MEDS ORDERED: Ondansetron 4 mg VIAL 2 MG/ML 2 ml VIAL ONE (16:57)
[2023-10-16] MEDS ORDERED: Dexamethasone IV 4 MG/ML VIAL 1 ml VIAL ONE (16:57)
[2023-10-16] MEDS: Sodium Citrate/Citric Acid LIQ 15 ML UDC PO ONE (18:52)
[2023-10-16] MEDS: Magnesium Hydroxide LIQ 30 ML UDC PO SCH (20:17)
[2023-10-16] MEDS: Morphine 2 MG/ML SYRINGE IV PRN (22:35)
[2023-10-16] MEDS: ceFAZolin 1 GM ADVAN 1 GM in NS 0.9% 50 ML 50 ML IVPB SCH (23:14)
[2023-10-17 06:16] LABS: Hematocrit 35.3 % (35-45); Mean Platelet Volume 7.4 fL (7.5-11.2); Platelet Count 376 10^3/uL (150-450)
[2023-10-17 06:41] LABS: Calcium 9.1 mg/dL (8.6-10.3); Creatinine, Serum 0.7 mg/dL (0.51-0.95); Potassium 3.9 mmol/L (3.5-5.0)
[2023-10-17] MEDS: Vitamin THERAPEUTIC TAB PO SCH (08:23)
[2023-10-17] MEDS: Morphine ER 15 mg TAB ** extended release PO SCH (13:30)
[2023-10-17 14:53] VITALS: BP 138/78
== END 2023-10-17 17:10 | disposition home or self-care (01) | DRG 470 ==
LOC: INTOOBSV 11:46 → AA 11:46 → SUATTDRO 15:05 → OBSVTOIN 15:05 → SSU 18:38
PROVIDERS: ADMIT Orthopaedic Surgery Adult Reconstructive Orthopaedic Surgery; ATTEND Orthopaedic Surgery Adult Reconstructive Orthopaedic Surgery